=== PATIENT | female | born 1945 | race Caucasian/White ===

== ENCOUNTER → 2024-02-15 10:32 | Outpatient (CLI) | payer MEDICARE, OTHER, SELFPAY ==
--- NOTE | 2024-02-15 10:33 | DI.CT.S_ITS ---
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 1 mm lung window, 5 mm thick coronal and sagittal and 7 mm axial MIP reformats were then acquired. For radiation dose reduction, the following was used: automated exposure control, adjustment of mA and/or kV according to patient size. COMPARISON: Outside Facility, RG, CT THORAX W/O CONTRAST, 11/14/2023, 9:32. FINDINGS: Image quality: Diagnostic. Lower Neck: No enlarged lymph nodes. Thyroid: No thyroid nodules which require sonographic follow up, per consensus guidelines. Axillae: No enlarged lymph nodes. Chest Wall: Unremarkable. Bones: Unremarkable. Lungs and Pleura: No pneumothorax or pleural effusions. < previous appearance of tree-in-bud opacities within the left lower lobe demonstrates near complete interval resolution. Previous area cavitation in the right lower lobe now demonstrates a solid nodular appearance measuring 1.2 cm. Nodular thickening within the right minor fissure is unchanged. Heart: Heart size is normal. No pericardial effusion. Thoracic Vessels: The aorta and pulmonary arteries demonstrate normal size. Mediastinum and Antonia: No enlarged lymph nodes. Esophagus: No wall thickening. No hiatal hernia. Upper Abdomen: Visualized upper abdomen solid organs and bowel loops appear normal. IMPRESSION: Previous tree-in-bud opacities within the left lung demonstrates near complete interval resolution. Cavitary lesion within the right lower lobe now demonstrates a solid nodular appearance. This may represent recurrent disease. Dictated by: Cheri Alvarez M.D. on 02/26/2024 at 22:30 Approved by: Cheri Alvarez M.D. on 02/26/2024 at 22:32
== END ==
PROVIDERS: Referring Provider Internal Medicine Critical Care Medicine; Visit Provider Internal Medicine Critical Care Medicine
DX: J21.9 Acute bronchiolitis, unspecified (principal); R91.8 Other nonspecific abnormal finding of lung field
CPT/HCPCS: 71250